=== PATIENT | male | born 1950 | race Caucasian/White ===

== ENCOUNTER → 2023-07-07 10:41 | Outpatient (REF) | payer MEDICARE, SELFPAY ==
[2023-07-07 12:00] LABS: HDL Cholesterol 50 mg/dl; LDL Cholesterol, Calculated 46 mg/dl; Total Cholesterol 137 mg/dl (50-199); Triglyceride 209 mg/dl (10-149); Very Low Density Lipoprotein 41 mg/dl (0-30)
== END ==
LOC: REG 10:41
PROVIDERS: ATTENDING PHYSICIAN Nurse Practitioner Family
DX: R73.09 Other abnormal glucose (principal); E78.2 Mixed hyperlipidemia
CPT/HCPCS: 36415; 80061; 83036

== ENCOUNTER → 2023-10-09 06:23 | Day surgery (SDC) | payer MEDICARE, SELFPAY | LOC: GI 06:23 | PROVIDERS: ATTENDING PHYSICIAN Surgery | DX: R19.5 Other fecal abnormalities (principal); Z12.11 Encounter for screening for malignant neoplasm of colon; K57.30 Diverticulosis of large intestine without perforation or abscess without bleeding; D12.8 Benign neoplasm of rectum; K62.1 Rectal polyp | CPT/HCPCS: 45385; 45380; 88305 ==

== ENCOUNTER → 2023-11-24 11:33 | Outpatient (REF) | payer MEDICARE, SELFPAY ==
[2023-11-24 12:48] LABS: Urine Albumin Negative (Neg - Trace); Urine Bilirubin Negative (Negative); Urine Character Clear (Clear); Urine Color Yellow; Urine Glucose Negative (Negative); Urine Ketone Negative (Negative); Urine Leukocyte Negative (Negative); Urine Nitrite Negative (Negative); Urine Occult Blood Negative (Negative); Urine Specific Gravity 1.005 (<1.030); Urine Urobilinogen Negative (Neg - 1+); Urine pH 6.5 (5.0-9.0)
[2023-11-24 12:52] LABS: % Basophils 1.1 % (0-2); % Eosinophils 2.3 % (0-6); % Immature Granulocytes 0.2 % (0-0.5); % Lymphocytes 21.1 % (20.5-51.1); % Neutrophils 60.3 % (42.2-75.2); Absolute Basophils 0.1 10^3/uL (0-0.2); Absolute Eosinophils 0.1 10^3/uL (0-0.7); Absolute Lymphocytes 0.9 10^3/uL (1.2-3.4); Absolute Monocytes 0.7 10^3/uL (0.1-0.6); Absolute Neutrophils 2.7 10^3/uL (1.4-6.5); Hematocrit 36.9 % (39.0-52.0); Hemoglobin 12.9 g/dL (13.0-18.0); Mean Corpuscular Hgb 31.4 pg (27.0-31.0); Mean Corpuscular Volume 89.8 fL (80.0-94.0); Mean Platelet Volume 9.7 fL (7.4-10.4); Nucleated Red Blood Cells % 0 % (-); Platelet Count 232 10^3/uL (130-400); Red Blood Cell Count 4.11 10^6/uL (4.70-6.10); Red Cell Dist. Width 13.2 % (11.5-14.5); White Blood Cell Count 4.4 10^3/uL (4.8-10.8)
[2023-11-24 13:09] LABS: ALT (SGPT) 24 U/L (0-50); AST (SGOT) 26 U/L (17-59); Albumin 4.2 g/dl (3.5-5.0); Alkaline Phosphatase 77 U/L (38-126); Blood Urea Nitrogen 11 mg/dl (9-20); Calcium 9.4 mg/dl (8.4-10.2); Carbon Dioxide 23 mmol/L (22-30); Chloride 106 mmol/L (98-107); Glucose 116 mg/dl (70-99); HDL Cholesterol 53 mg/dl; LDL Cholesterol, Calculated 47 mg/dl; Potassium 4.3 mmol/L (3.5-5.1); Sodium 137 mmol/L (135-145); Total Bilirubin 1.1 mg/dl (0.2-1.3); Total Cholesterol 146 mg/dl (50-199); Total Protein 6.4 g/dl (6.3-8.2); Triglyceride 230 mg/dl (10-149); Very Low Density Lipoprotein 46 mg/dl (0-30); eGFR > 60.00
[2023-11-24 13:26] LABS: Vitamin D, 25-OH*** 38.7 ng/mL (30-80)
[2023-11-24 13:49] LABS: Glycohemoglobin (HgbA1c) 6.5 % (4.0-5.6)
== END ==
LOC: REG 11:33
PROVIDERS: ATTENDING PHYSICIAN Internal Medicine Geriatric Medicine
DX: I10 Essential (primary) hypertension (principal); Z00.00 Encounter for general adult medical examination without abnormal findings; E78.2 Mixed hyperlipidemia; Z98.61 Coronary angioplasty status; G11.8 Other hereditary ataxias; E55.9 Vitamin D deficiency, unspecified; I25.10 Atherosclerotic heart disease of native coronary artery without angina pectoris; I25.2 Old myocardial infarction; R73.09 Other abnormal glucose; H61.23 Impacted cerumen, bilateral; L40.9 Psoriasis, unspecified; Z13.89 Encounter for screening for other disorder; I71.21 Aneurysm of the ascending aorta, without rupture
CPT/HCPCS: 36415; 80053; 80061; 81003; 82306; 83036; 85025

== ENCOUNTER → 2024-02-29 08:00 | Outpatient (REF) | payer MEDICARE, SELFPAY ==
[2024-02-29 10:18] LABS: HDL Cholesterol 58 mg/dl; LDL Cholesterol, Calculated 55 mg/dl; Total Cholesterol 150 mg/dl (50-199); Triglyceride 188 mg/dl (10-149); Very Low Density Lipoprotein 37 mg/dl (0-30)
== END ==
LOC: REG 08:00
PROVIDERS: ATTENDING PHYSICIAN Internal Medicine Geriatric Medicine
DX: I25.10 Atherosclerotic heart disease of native coronary artery without angina pectoris (principal); G11.8 Other hereditary ataxias; I10 Essential (primary) hypertension; E78.2 Mixed hyperlipidemia; Z98.61 Coronary angioplasty status; E55.9 Vitamin D deficiency, unspecified; I25.2 Old myocardial infarction; R73.09 Other abnormal glucose; H61.23 Impacted cerumen, bilateral; L40.9 Psoriasis, unspecified; Z13.89 Encounter for screening for other disorder; I71.21 Aneurysm of the ascending aorta, without rupture
CPT/HCPCS: 36415; 80061

== ENCOUNTER → 2024-05-06 11:33 | Outpatient (REF) | payer MEDICARE, SELFPAY | LOC: UCDH 11:33 | PROVIDERS: ATTENDING PHYSICIAN Physician Assistant Medical; FAMILY PHYSICIAN Internal Medicine Geriatric Medicine | DX: J32.9 Chronic sinusitis, unspecified (principal) | CPT/HCPCS: 71046 ==

== ENCOUNTER → 2024-07-02 12:07 | Outpatient (REF) | payer MEDICARE, SELFPAY ==
[2024-07-02 14:46] LABS: TSH Reflex To Free T4 2.03 uIU/ml (0.47-4.68)
== END ==
LOC: RAD 12:07
PROVIDERS: ATTENDING PHYSICIAN Nurse Practitioner Family; FAMILY PHYSICIAN Internal Medicine Geriatric Medicine
DX: R05.3 Chronic cough (principal); R09.89 Other specified symptoms and signs involving the circulatory and respiratory systems; R53.83 Other fatigue
CPT/HCPCS: 36415; 71046; 84443

== ENCOUNTER → 2024-10-07 07:58 | Outpatient (REF) | payer MEDICARE, SELFPAY | LOC: HWRAD 07:58 | PROVIDERS: ATTENDING PHYSICIAN Internal Medicine Cardiovascular Disease; FAMILY PHYSICIAN Internal Medicine Geriatric Medicine | DX: I25.10 Atherosclerotic heart disease of native coronary artery without angina pectoris (principal); R09.89 Other specified symptoms and signs involving the circulatory and respiratory systems | CPT/HCPCS: 93880 ==

== ENCOUNTER → 2024-10-28 09:33 | Outpatient (REF) | payer MEDICARE, SELFPAY | LOC: DHSLP 09:33 | PROVIDERS: ATTENDING PHYSICIAN Internal Medicine Cardiovascular Disease; FAMILY PHYSICIAN Internal Medicine Geriatric Medicine | DX: G47.33 Obstructive sleep apnea (adult) (pediatric) (principal) | CPT/HCPCS: 95800 ==

== ENCOUNTER → 2024-10-30 13:41 | Outpatient (REF) | payer MEDICARE, SELFPAY | LOC: CLAB 13:41 | PROVIDERS: ATTENDING PHYSICIAN Nurse Practitioner Family | DX: J02.9 Acute pharyngitis, unspecified (principal) | CPT/HCPCS: 87070 ==

== ENCOUNTER → 2024-12-16 08:54 | Outpatient (REF) | payer MEDICARE, SELFPAY ==
[2024-12-16 09:40] LABS: Urine Character Clear (Clear)
[2024-12-16 09:45] LABS: Hematocrit 42.4 % (39.0-52.0); Hemoglobin 14.1 g/dL (13.0-18.0); Mean Corp Hgb Conc. 33.3 g/dL (33.0-37.0); Mean Corpuscular Volume 95.1 fL (80.0-94.0); Nucleated Red Blood Cells % 0 % (-); Platelet Count 249 10^3/uL (130-400); Red Cell Dist. Width 13.1 % (11.5-14.5)
[2024-12-16 10:10] LABS: ALT (SGPT) 24 U/L (0-50); AST (SGOT) 22 U/L (17-59); Albumin 4.3 g/dl (3.5-5.0); Alkaline Phosphatase 68 U/L (38-126); Blood Urea Nitrogen 10 mg/dl (9-20); Calcium 9.3 mg/dl (8.4-10.2); Carbon Dioxide 26 mmol/L (22-30); Chloride 109 mmol/L (98-107); Glucose 128 mg/dl (70-99); HDL Cholesterol 56 mg/dl; LDL Cholesterol, Calculated 69 mg/dl; Potassium 4.8 mmol/L (3.5-5.1); Sodium 140 mmol/L (135-145); Total Protein 6.6 g/dl (6.3-8.2); Very Low Density Lipoprotein 52 mg/dl (0-30); eGFR > 60.00
[2024-12-16 10:25] LABS: Vitamin D, 25-OH*** 37.2 ng/mL (30-80)
[2024-12-16 10:38] LABS: PSA, Total - Screen 0.69 ng/ml (0.0-4.0); TSH 7.12 uIU/ml (0.47-4.68)
[2024-12-16 11:15] LABS: Glycohemoglobin (HgbA1c) 6.4 % (4.0-5.6)
== END ==
LOC: REG 08:54
PROVIDERS: ATTENDING PHYSICIAN Internal Medicine Geriatric Medicine
DX: I25.10 Atherosclerotic heart disease of native coronary artery without angina pectoris (principal); I10 Essential (primary) hypertension; E78.2 Mixed hyperlipidemia; Z98.61 Coronary angioplasty status; E55.9 Vitamin D deficiency, unspecified; I25.2 Old myocardial infarction; R73.09 Other abnormal glucose; H61.23 Impacted cerumen, bilateral; L40.9 Psoriasis, unspecified; Z13.89 Encounter for screening for other disorder; I71.21 Aneurysm of the ascending aorta, without rupture; R68.89 Other general symptoms and signs
CPT/HCPCS: 36415; 80053; 80061; 81003; 82306; 83036; 84439; 84443; 84681; 85025; G0103

== ENCOUNTER → 2024-12-23 11:15 | Outpatient (REF) | payer MEDICARE, SELFPAY | LOC: HWRAD 11:15 | PROVIDERS: ATTENDING PHYSICIAN Internal Medicine Critical Care Medicine; PRIMARYCARE PHYSICIAN Internal Medicine Geriatric Medicine | DX: Z87.891 Personal history of nicotine dependence (principal) | CPT/HCPCS: 71271 ==

== ENCOUNTER → 2025-01-30 10:48 | Outpatient (REF) | payer MEDICARE, SELFPAY ==
[2025-01-30 13:05] LABS: TSH 1.57 uIU/ml (0.47-4.68)
== END ==
LOC: REG 10:48
PROVIDERS: ATTENDING PHYSICIAN Internal Medicine Geriatric Medicine
DX: E03.9 Hypothyroidism, unspecified (principal)
CPT/HCPCS: 36415; 84439; 84443

== ENCOUNTER → 2025-05-12 11:31 | Outpatient (REF) | payer MEDICARE, SELFPAY ==
[2025-05-12 12:17] LABS: Hematocrit 39.6 % (39.0-52.0); Hemoglobin 13.3 g/dL (13.0-18.0); Mean Corp Hgb Conc. 33.6 g/dL (33.0-37.0); Mean Corpuscular Volume 94.1 fL (80.0-94.0); Nucleated Red Blood Cells % 0 % (-); Platelet Count 223 10^3/uL (130-400); Red Cell Dist. Width 13.2 % (11.5-14.5)
[2025-05-12 12:38] LABS: ALT (SGPT) 21 U/L (0-50); AST (SGOT) 23 U/L (17-59); Albumin 4.2 g/dl (3.5-5.0); Alkaline Phosphatase 74 U/L (38-126); Blood Urea Nitrogen 17 mg/dl (9-20); Calcium 9.3 mg/dl (8.4-10.2); Carbon Dioxide 22 mmol/L (22-30); Chloride 107 mmol/L (98-107); Glucose 113 mg/dl (70-99); Potassium 4.7 mmol/L (3.5-5.1); Sodium 135 mmol/L (135-145); Total Protein 6.7 g/dl (6.3-8.2); eGFR > 60.00
[2025-05-12 13:28] LABS: Vitamin B12 300 pg/ml (239-931)
== END ==
LOC: REG 11:31
PROVIDERS: ATTENDING PHYSICIAN Nurse Practitioner Family
DX: R53.83 Other fatigue (principal); G47.30 Sleep apnea, unspecified; E03.9 Hypothyroidism, unspecified; E53.8 Deficiency of other specified B group vitamins; Z23 Encounter for immunization
CPT/HCPCS: 36415; 80053; 82607; 83880; 85025; 93005